=== PATIENT | female | born 1960 | race Caucasian/White ===

== ENCOUNTER → 2016-11-17 | Outpatient (CLI) | payer BC ==
[~2016-11-17] MED LIST: ESTROGEN; PREMARIN 1.251.25 MG PO
== END ==
LOC: MC.RAD 07:00
DX: Z12.31 Encounter for screening mammogram for malignant neoplasm of breast (principal)

== ENCOUNTER 2017-11-03 13:00 | Day surgery (SDC) | payer BC ==
[~2017-11-03] VITALS: Ht 162.6 cm; Wt 85.8 kg
[~2017-11-03 13:00] MED LIST changes: +ESTRACE 1MG1 MG/TAB PO; -ESTROGEN
[2017-11-03 13:48] VITALS: BP 147/92; PULSE 72; TEMP 98.5
[2017-11-03 14:15] VITALS: BP 151/85; PULSE 77; TEMP 97.9
[2017-11-03 14:30] VITALS: BP 143/81; PULSE 72
[2017-11-03 14:45] VITALS: BP 131/76; PULSE 60
== END 2017-11-03 14:51 | disposition home or self-care (01) ==
LOC: SDCO 13:00
DX: Z12.11 Encounter for screening for malignant neoplasm of colon (principal); Z15.09 Genetic susceptibility to other malignant neoplasm; D12.5 Benign neoplasm of sigmoid colon
CPT/HCPCS: OP; J2250; J3010; J7030

== ENCOUNTER → 2018-08-15 | Outpatient (CLI) | payer BC | LOC: COL.VAS 09:59 | DX: Z01.810 Encounter for preprocedural cardiovascular examination (principal); R94.31 Abnormal electrocardiogram [ECG] [EKG] ==

== ENCOUNTER → 2018-10-30 | Outpatient (CLI) | payer BC | LOC: MC.RAD 08:17 | DX: Z12.31 Encounter for screening mammogram for malignant neoplasm of breast (principal); N63.11 Unspecified lump in the right breast, upper outer quadrant ==

== ENCOUNTER → 2018-11-06 | Outpatient (CLI) | payer BC | LOC: MC.RAD 08:58 | DX: N60.01 Solitary cyst of right breast (principal) ==

== ENCOUNTER → 2018-12-24 | Outpatient (CLI) | payer BC | LOC: COL.RAD 13:49 | DX: M79.641 Pain in right hand (principal) | CPT/HCPCS: J3301; Q9967 ==

== ENCOUNTER → 2019-12-09 | Outpatient (CLI) | payer BC | LOC: MC.RAD 06:55 | DX: Z12.31 Encounter for screening mammogram for malignant neoplasm of breast (principal) ==

== ENCOUNTER → 2021-11-02 | Outpatient (CLI) | payer BC | LOC: MC.RAD 07:37 | DX: Z12.31 Encounter for screening mammogram for malignant neoplasm of breast (principal) ==

== ENCOUNTER → 2023-12-20 | Outpatient (CLI) | payer BC ==
[~2023-12-20] MED LIST changes: +CYMBALTA 60MG60 MG PO; +LR 1,000 ML IV SCH; +OMEGA-31 SGL PO; +ONE-A-DAY WOME0.4 MG PO; +PRINZIDE 12.5 M1 TA1 PO; +PROBIOTIC BLEN1 EACH PO
== END ==
LOC: MC.RAD 06:59
DX: Z12.31 Encounter for screening mammogram for malignant neoplasm of breast (principal)